=== PATIENT | male | born 1990 | race African-American/Black ===

== ENCOUNTER 2018-07-29 15:24 | Emergency (ER) | payer SELFPAY ==
[~2018-07-29] VITALS: Ht 182.9 cm; Wt 79.0 kg
[2018-07-29] MEDS ORDERED: SODIUM CHLORIDE 0.9% 1,000 ML IV ONE (16:22)
[2018-07-29] MEDS ORDERED: LEVETIRACETAM 500MG PREMIX 100 ML IV ONE (16:30)
[2018-07-29] MEDS ORDERED: BACITRACIN ZINC OINT UDPKT TOP ONE (16:30)
[2018-07-29] MEDS ORDERED: TETANUS, DIPHTHERIA, PERTUSSIS VAC/PF 0.5ML (>7YR OLD) IM ONE (16:30)
[2018-07-29 16:45] LABS: CHLORIDE 105 mEq/L (98-107)
[2018-07-29 16:46] LABS: BASOPHILS % 0.5 % (0.0-2.0); EOSINOPHILS % 2.8 % (0.0-5.0); HEMATOCRIT. 40.6 % (42.0-52.0); HEMOGLOBIN. 13.9 g/dL (14.0-18.0); LYMPHOCYTES % 34.8 % (20.0-50.0); MEAN CORPUSCULAR HEMOGLOBIN 30.1 pg (28.0-32.0); MEAN CORPUSCULAR VOLUME 87.8 fL (80.0-94.0); MEAN PLATELET VOLUME 8.2 fl (7.4-10.4); NEUTROPHILS % 53.9 % (40.0-76.0); PLATELET 179 x1000/uL (130-400); RED BLOOD CELL COUNT 4.63 mill/uL (4.7-6.1); RED CELL DISTRIBUTION WIDTH 12.6 % (11.6-14.6)
[2018-07-29 16:50] LABS: ETHANOL BLOOD < 10 mg/dL
[2018-07-29 16:54] LABS: CREATINE KINASE 195 IU/L (39-308); CREATINE KINASE MB FRACTION 1.1 ng/mL (0.5-3.6)
[2018-07-29 16:57] LABS: CARBAMAZEPINE < 0.5 ug/mL (4-12)
[2018-07-29 16:59] LABS: PHENOBARBITAL < 2.1 ug/mL (15.0-40.0)
[2018-07-29 21:21] VITALS: BP 116/78
== END 2018-07-29 21:25 | disposition home or self-care (01) ==
LOC: ER 15:24
DX: S09.90XA Unspecified injury of head, initial encounter (principal); R56.9 Unspecified convulsions; E86.0 Dehydration; G93.40 Encephalopathy, unspecified; F17.200 Nicotine dependence, unspecified, uncomplicated; F12.10 Cannabis abuse, uncomplicated; V89.2XXA Person injured in unspecified motor-vehicle accident, traffic, initial encounter; Y93.89 Activity, other specified; Y92.89 Other specified places as the place of occurrence of the external cause; Y99.8 Other external cause status
CPT/HCPCS: 36415; 70450; 80053; 80156; 80165; 80184; 80185; 80320; 82140; 82550; 82553; 82962; 84443; 84484; 85025; 90471; 90715; 93005; 96374; 99284; J1953; J7030; G0480